=== PATIENT | male | born 1960 | race American Indian/Alaskan Native ===

== ENCOUNTER 2025-01-25 12:04 | Inpatient (IN) | payer OTHER ==
[~2025-01-25] VITALS: Ht 170.2 cm; Wt 83.6 kg
[2025-01-25 12:37] LABS: BASOPHILS 0.5 % (0.2-1.2); EOSINOPHILS 3.5 % (0.8-7.0); LYMPHOCYTES 18.3 % (21.8-53.1); MCH 28.3 PG (25.7-32.2); MCHC 32.8 g/dL (32.3-36.5); MCV 86.2 fL (79.0-92.2); MONOCYTES 7.8 % (5.3-12.2); NEUTROPHILS 69.0 % (34.0-67.9); RBC 4.35 M/uL (4.63-6.08)
[2025-01-25] MEDS ORDERED: METFORMIN HCL500 M2 PO (12:47)
[2025-01-25] MEDS ORDERED: WEGOVY0.25 MG/0. SUB-Q (12:47)
[2025-01-25] MEDS ORDERED: LISINOPRIL20 MG PO (12:47)
[2025-01-25] MEDS ORDERED: CLEOCIN HCL300 MG PO ×2 (12:48→17:12)
[2025-01-25] MEDS ORDERED: LIPITOR20 MG PO (12:48)
[2025-01-25] MEDS ORDERED: JARDIANCE25 MG PO (12:48)
[2025-01-25 12:50] LABS: ALT (SGPT) 18.0 U/L (14-59); AST (SGOT) 11.0 U/L (15-37); GLOMERULAR FILTRATION RATE,EST 37.0 mL/min (>60); PROTEIN, TOTAL 8.1 g/dL (6.4-8.2); UREA NITROGEN 36.0 mg/dL (7-18)
[2025-01-25] MEDS ORDERED: VANCOMYCIN HCL 2,500 MG in DEXTROSE 5% 500 ML IV ONE (14:00)
[2025-01-25 14:27] LABS: LACTIC ACID, BLOOD 1.4 mmol/L (0.4-2.0)
[2025-01-25] MEDS ORDERED: FAMOTIDINE 20 MG TAB PO SCH (15:24)
[2025-01-25] MEDS ORDERED: ATORVASTATIN 20 MG TAB PO SCH (15:27)
[2025-01-25] MEDS ORDERED: ACETAMINOPHEN 325 MG TAB PO PRN (15:30)
[2025-01-25] MEDS ORDERED: SODIUM CHLORIDE 0.9% 1,000 ML IV SCH (15:30)
[2025-01-25] MEDS ORDERED: DEXTROSE 5% 1,000 ML IV PRN (15:45)
[2025-01-25] MEDS ORDERED: GLUCAGON,HUMAN RECOMBINANT 1 MG/ML VIAL SUB-Q PRN (15:45)
[2025-01-25] MEDS ORDERED: IBLOOD GLUCOSE TEST STRIP 1 EA TEST XX PRN (15:45)
[2025-01-25] MEDS ORDERED: DEXTROSE 50% 50 ML SYR IV PRN ×2 (15:45)
[2025-01-25] MEDS ORDERED: INSULIN GLARGINE-YFGN 100 UNIT/ML ML SUB-Q SCH (15:57)
[2025-01-25] MEDS ORDERED: HYDROCODONE/ACETA 7.5/325 TAB PO PRN (16:00)
[2025-01-25] MEDS ORDERED: PIPERACILLIN/TAZOBACTAM 4.5 GM in DEXTROSE 5% 100 ML IV SCH ×2 (16:29→21:00)
[2025-01-25 16:35] VITALS: BP 115/72
[2025-01-25] MEDS ORDERED: Insulin Regular, Human 100 UNIT/ML ML SUB-Q SCH (17:00)
[2025-01-25] MEDS ORDERED: METFORMIN HCL500 M1 PO (17:11)
[2025-01-25 18:04] VITALS: BP 106/68
[2025-01-25 20:00] VITALS: BP 112/68
[2025-01-25] MEDS ORDERED: IBLOOD GLUCOSE TEST STRIP 1 EA TEST XX SCH ×2 (20:00→21:00)
[2025-01-25] MEDS ORDERED: MELATONIN 3 MG TAB PO PRN (21:00)
[2025-01-25] MEDS ORDERED: SENNOSIDES/DOCUSATE 1 EA TAB PO SCH (21:00)
[2025-01-25 22:00] VITALS: BP 103/63
[2025-01-26] VITALS (10 sets, daily range): BP systolic 87–118; BP diastolic 56–74
[2025-01-26 05:19] LABS: BASOPHILS 0.7 % (0.2-1.2); EOSINOPHILS 4.4 % (0.8-7.0); LYMPHOCYTES 20.3 % (21.8-53.1); MCH 28.7 PG (25.7-32.2); MCHC 33.3 g/dL (32.3-36.5); MCV 86.1 fL (79.0-92.2); MONOCYTES 7.4 % (5.3-12.2); NEUTROPHILS 66.4 % (34.0-67.9); RBC 3.97 M/uL (4.63-6.08)
[2025-01-26 05:34] LABS: ALT (SGPT) 10.0 U/L (14-59); AST (SGOT) 7.0 U/L (15-37); GLOMERULAR FILTRATION RATE,EST 41.0 mL/min (>60); PHOSPHORUS, INORGANIC 5.1 mg/dL (2.5-4.9); PROTEIN, TOTAL 7.2 g/dL (6.4-8.2); UREA NITROGEN 33.0 mg/dL (7-18)
[2025-01-26] MEDS ORDERED: DAPTOmycin 500 MG/10 ML VIAL IV SCH ×2 (09:00)
[2025-01-26] MEDS ORDERED: PHARMACY RENAL DOSE ADJUSTMENT 1 DOSE MISC PO SCH (12:00)
[2025-01-26] MEDS ORDERED: IBLOOD GLUCOSE TEST STRIP 1 EA TEST XX SCH (12:00)
--- NOTE | 2025-01-26 19:00 | EKG ---
[facility] [address] [facility] [place] [address] Signed Normal sinus rhythm Septal infarct , age undetermined Abnormal ECG No previous ECGs available Confirmed by Neil Rodríguez MD () on 01/26/2025 7:00:07 PM Electronically Signed By: NELI RODRÍGUEZ MD 01/26/251899 PATIENT NAME: LINDA EVANS Electrocardiogram DATE OF : 60 PHYSICIAN: NELI RODRÍGUEZ MD REPORT #: [id number] REPORT IS CONFIDENTIAL AND NOT TO BE RELEASED WITHOUT AUTHORIZATION
[2025-01-27] VITALS (11 sets, daily range): BP systolic 109–134; BP diastolic 65–84
[2025-01-27 05:16] LABS: BASOPHILS 0.9 % (0.2-1.2); EOSINOPHILS 4.9 % (0.8-7.0); LYMPHOCYTES 20.9 % (21.8-53.1); MCH 27.8 PG (25.7-32.2); MCHC 33.0 g/dL (32.3-36.5); MCV 84.2 fL (79.0-92.2); MONOCYTES 7.4 % (5.3-12.2); NEUTROPHILS 64.6 % (34.0-67.9); RBC 4.25 M/uL (4.63-6.08)
[2025-01-27 05:37] LABS: ALT (SGPT) 19.0 U/L (14-59); AST (SGOT) 10.0 U/L (15-37); GLOMERULAR FILTRATION RATE,EST 42.0 mL/min (>60); PROTEIN, TOTAL 7.6 g/dL (6.4-8.2); UREA NITROGEN 29.0 mg/dL (7-18)
[2025-01-27] MEDS ORDERED: LIDOCAINE HCL 2% 20 ML MDV ONE (10:18)
[2025-01-27] MEDS ORDERED: Ropivacaine HCl 0.5% 30 ML VIAL ONE (10:18)
[2025-01-27] MEDS ORDERED: LIDOCAINE HCL 2% 5 ML SDV ONE (10:30)
[2025-01-27] MEDS ORDERED: PROCHLORPERAZINE EDISYLATE 10 MG/2 ML VIAL IV PRN (10:45)
[2025-01-27] MEDS ORDERED: IBLOOD GLUCOSE TEST STRIP 1 EA TEST VI PRN (10:45)
[2025-01-27] MEDS ORDERED: fentaNYL citrate 50 MCG/ML SDV IV PRN (10:45)
[2025-01-27] MEDS ORDERED: HYDROmorphone HCL 1 MG/ML SYR IV PRN (10:45)
[2025-01-27] MEDS ORDERED: NALOXONE HCL 0.4 MG SYR IV PRN (10:45)
[2025-01-28] VITALS (9 sets, daily range): BP systolic 114–138; BP diastolic 60–85
[2025-01-28 05:13] LABS: BASOPHILS 0.6 % (0.2-1.2); EOSINOPHILS 3.7 % (0.8-7.0); LYMPHOCYTES 20.0 % (21.8-53.1); MCH 28.1 PG (25.7-32.2); MCHC 33.0 g/dL (32.3-36.5); MCV 85.1 fL (79.0-92.2); MONOCYTES 7.6 % (5.3-12.2); NEUTROPHILS 67.3 % (34.0-67.9); RBC 4.09 M/uL (4.63-6.08)
[2025-01-28 05:32] LABS: ALT (SGPT) 16.0 U/L (14-59); AST (SGOT) 12.0 U/L (15-37); GLOMERULAR FILTRATION RATE,EST 45.0 mL/min (>60); PROTEIN, TOTAL 7.2 g/dL (6.4-8.2); UREA NITROGEN 24.0 mg/dL (7-18)
[2025-01-28] MEDS ORDERED: LINEZOLID600 MG PO (11:37)
[2025-01-28] MEDS ORDERED: CIPROFLOXACIN750 MG PO (11:41)
[2025-01-28] MEDS ORDERED: METRONIDAZOLE500 MG PO (11:42)
--- NOTE | 2025-01-28 14:58 | OR ---
[facility] [address] [place], [place] [address] Signed DATE OF OPERATION: 01/27/2025 SURGEON: Xu Alxeander DPM PREOPERATIVE DIAGNOSIS: Gangrenous distal right third digit with osteomyelitis. POSTOPERATIVE DIAGNOSIS: Gangrenous distal right third digit with osteomyelitis. PROCEDURE: Partial toe amputation, right third digit. LIBRARY SERVICES ASSISTANT: Dany Cuenca DPM. NURSE PATIENT MONITOR: Loenora Bower. ANESTHESIA: Local with MAC consisting of 6 mL of 2% lidocaine plain mixed with 0.5% ropivacaine in 1:1 mix. HEMOSTASIS: With an ankle tourniquet. ESTIMATED BLOOD LOSS: Less than 3 mL or minimal. DESCRIPTION OF PROCEDURE: The patient was brought into the operating room and placed upon the operating table in the supine position. Following IV sedation, the above local anesthesia was administered about the patient's right third digit. The foot was then scrubbed, prepped and draped in usual sterile technique. An Esmarch bandage was then utilized to exsanguinate the patient's right foot, then it was left wrapped around the ankle to act as tourniquet. Attention was then directed to the right third digit where a fishmouth shaped incision was performed with the slight corners being medial and lateral just proximal, the incision extending both dorsal and plantar across the incision and again connecting on the opposite side. Incision was deepened through the subcutaneous tissue and down to bone utilizing #64 blade. At this time, the joint capsule, the proximal phalanx was Electronically Signed By: XU ALEXANDER DPM 01/28/25 1458 PATIENT NAME: LINDA EVANS OPERATIVE REPORT DATE OF : 60 REPORT #: [id number] PHYSICIAN: XU ALEXANDER DPM PCP: GERALDO BELLAMY MD REPORT IS CONFIDENTIAL AND NOT TO BE RELEASED WITHOUT AUTHORIZATION [facility] [address] [place], [place] [address] Signed released from around the head of the proximal phalanx. In the distal aspect of the digit removed from the operative field to be sent to pathology. Inspection of the proximal phalanx found some mild discoloration noted distally. Some of the surrounding soft tissue also had some necrotic-type discoloration. Utilizing forceps, the surrounding soft tissue was excised. Utilizing a bone saw, the distal 2/3rd of the proximal phalanx was also removed until healthy strong bone was identified. Extensor and flexor tendons were released proximal at the level near the metatarsophalangeal joint region. The area was then flushed with copious amounts of sterile normal saline and the incision was closed utilizing 4-0 nylon. Betadine-soaked gauze dressing was then applied with the initial layer being Adaptic followed by Betadine damp gauze, fluff gauze, rolled gauze and Coban. The ankle tourniquet was removed and prompt hyperemic response was noted to all digits of the patient's right foot. The patient then tolerated both procedure and anesthesia well. The patient was then escorted to recovery room by Anesthesia. Later, the patient is to be readmitted to the general medical floor for continued IV antibiotics. Please note also that intraoperative culture swab was also taken of the removed portion of the toe. Xu Alexander DPM TM/ZAL /[id number] Copies: ~ Electronically Signed By: XU ALEXANDER DPM 01/28/25 1458 PATIENT NAME: LINDA EVANS FELISA OPERATIVE REPORT DATE OF : 60 REPORT #: [id number] PHYSICIAN: XU ALEXANDER DPM PCP: GERALDO BELLAMY MD REPORT IS CONFIDENTIAL AND NOT TO BE RELEASED WITHOUT AUTHORIZATION
--- NOTE | 2025-01-29 13:47 | PATH ---
[facility] [address] [place], [place] [address] Signed SPECIMEN(S): A RIGHT 3RD TOE SPECIMEN SOURCE: A. RIGHT 3RD TOE CLINICAL HISTORY: Right foot osteomyelitis FINAL PATHOLOGIC DIAGNOSIS: Right third toe per requisition: - Ulcerated and devitalized skin and soft tissue consistent with gangrene - Acute osteomyelitis - Separate additional fragments of bone with acute osteomyelitis; the margins of which cannot be determined BB MICROSCOPIC EXAMINATION: Histologic sections of all submitted blocks are examined by light microscopy. These findings, together with the gross examination, support the pathologic diagnosis. GROSS DESCRIPTION: The specimen, labeled and designated "Daisy Reveles, right third toe per requisition," is received in formalin and consists of a 2.4 x 2.2 x 2.1 cm portion of toe that has been disarticulated through the interphalangeal joint. The skin is reynoso with absent toenail. There is a 3.5 x 2.4 cm area of ulceration, 0.2 cm away from the closest skin margin. The underlying bone is firm but capable of being cut through with a scalpel. The remainder of the skin is reynoso with some epithelial sloughing. Within the container are 2 additional portions of bone. 1 portion of bone has a smooth articular surface and measures 1.4 x 1 x 0.8 cm. The cut surface is inked black. The second portion of bone measures 1.3 x 0.6 x 0.6 cm and has 2 cut surfaces. The first cut surface is inked orange with the second cut surface is inked blue. Both bones are reynoso-white and firm with no discrete areas of hemorrhage. Mediator sections are submitted as follows: Cassette Summary: (A1) area of ulceration with underlying bone, decal in decal stat (A2) additional portions of bone, perpendicularly sectioned, decaled in PATIENT NAME: LINDA REVELES PATHOLOGY DATE OF : 60 REPORT #: [id number] PHYSICIAN: MARIA LSmarter Agent Mobile PATHOLOGY PCP: GERALDO BELLAMY MD REPORT IS CONFIDENTIAL AND NOT TO BE RELEASED WITHOUT AUTHORIZATION [facility] [address] [place], [place] [address] Signed decal stat AA (under the direct supervision of a pathologist) The Gross Description was prepared using a voice recognition system. The report was reviewed for accuracy; however, sound-alike word errors, addition and/or deletions may occur. If there is any question about this report, please contact Client Services. ADDITIONAL NOTES: Immunohistochemical and/or in situ hybridization studies if performed in this case included appropriate positive controls that reacted as expected. This test was developed and its performance characteristics determined by [facility]. It has not been cleared or approved by the U.S. Food and Drug Administration. The FDA has determined that such clearance or approval is not necessary. This test is used for clinical purposes. It should not be regarded as investigational or for research. [facility] is certified under the Clinical Laboratory Improvement Amendments of 1988 (CLIA) as qualified to perform high complexity clinical laboratory testing. PERFORMING LABORATORY: Technical component was performed by [facility], [address] [place] [id number] (CLIA# [id number]). Professional interpretation was performed by [facility] - [address] [place] [address] (CLIA#: [id number]). Diagnostician: David Little MD Pathologist Electronically Signed 01/29/2025 Copies: ~ PATIENT NAME: LINDA REVELES FELISA PATHOLOGY DATE OF : 60 REPORT #: [id number] PHYSICIAN: NATALIA PATHOLOGY PCP: GERALDO BELLAMY MD REPORT IS CONFIDENTIAL AND NOT TO BE RELEASED WITHOUT AUTHORIZATION
== END 2025-01-28 14:04 | disposition home or self-care (01) | DRG 617 ==
LOC: ED 12:04 → MS 15:32 → CCU 15:32 → MS 01-27 11:07
PROVIDERS: Emergency Medicine; Family Medicine; Podiatrist Foot & Ankle Surgery; ADMIT Internal Medicine; ATTEND Internal Medicine
PROC: 3E03329 Introduction of Other Anti-infective into Peripheral Vein, Percutaneous Approach (ICD-10-PCS; 2025-01-25)
PROC: 0Y6T0Z3 Detachment at Right 3rd Toe, Low, Open Approach (ICD-10-PCS; principal; 2025-01-27 10:00)
DX: E11.69 Type 2 diabetes mellitus with other specified complication (principal); E11.52 Type 2 diabetes mellitus with diabetic peripheral angiopathy with gangrene; M86.171 Other acute osteomyelitis, right ankle and foot; I10 Essential (primary) hypertension; E11.42 Type 2 diabetes mellitus with diabetic polyneuropathy; E11.22 Type 2 diabetes mellitus with diabetic chronic kidney disease; N18.30 Chronic kidney disease, stage 3 unspecified; E11.621 Type 2 diabetes mellitus with foot ulcer; E11.628 Type 2 diabetes mellitus with other skin complications; E78.5 Hyperlipidemia, unspecified; L97.514 Non-pressure chronic ulcer of other part of right foot with necrosis of bone; L03.031 Cellulitis of right toe; Z89.421 Acquired absence of other right toe(s); Z98.890 Other specified postprocedural states; Z79.84 Long term (current) use of oral hypoglycemic drugs; Z79.85 Long-term (current) use of injectable non-insulin antidiabetic drugs; Z79.899 Other long term (current) drug therapy
CPT/HCPCS: 01480; 36415; 71046; 73630; 80053; 83605; 83735; 84100; 85025; 85651; 86140; 87205; 93005; 93010; 93926; 94762; A9270; J0878; J1815; J2003; J2543; J2704; J2795; J3373; J7030; J7060